=== PATIENT | female | born 1960 | race Caucasian/White ===

== ENCOUNTER 2017-07-15 12:06 | Emergency (ER) | payer OTHER ==
[2017-07-15 12:13] VITALS: BMI 34.9
[2017-07-15 12:14] VITALS: O2SAT 100
[2017-07-15] MEDS ORDERED: Sodium Chloride 0.9% 1,000 ML IV STA (13:08)
[2017-07-15 13:39] LABS: BASO % 0.7 % (0.0-2.0); EOS % 0.1 % (0.0-4.0); HEMATOCRIT 38.5 % (34.0-47.0); LYMPH # 1.1 K/uL (1.0-4.3); LYMPH % 30.3 % (20.0-40.0); MEAN CELL VOLUME 83.1 fL (81.0-99.0); MEAN CORPUSCULAR HEMOGLOBIN 27.5 pg (27.0-31.0); MEAN CORPUSCULAR HGB CONC 33.1 g/dL (33.0-37.0); MEAN PLATELET VOLUME 8.8 fL (7.2-11.7); MONO # 0.2 K/uL (0.0-0.8); NRBC % 0.2 % (0.0-2.0); RED CELL DISTRIBUTION WIDTH 14.6 % (11.5-14.5); WHITE BLOOD COUNT 3.8 K/uL (4.8-10.8)
[2017-07-15 13:45] LABS: RBC URINE < 1 /hpf (0-3); URINE BACTERIA RARE (<OCC); URINE BILIRUBIN NEGATIVE (NEGATIVE); URINE BLOOD NEGATIVE (NEGATIVE); URINE COLOR Colorless (YELLOW); URINE GLUCOSE (UA) NORMAL (Normal); URINE KETONE NEGATIVE (NEGATIVE); URINE LEUKOCYTE ESTERASE 1+ Leu/uL (Negative); URINE PROTEIN NEGATIVE (NEGATIVE); URINE UROBILINOGEN NORMAL mg/dL (0.2-1.0); WBC URINE 2 /hpf (0-5)
[2017-07-15 13:47] LABS: CHLORIDE 101 mmol/L (98-107); SODIUM 137 mmol/L (132-148)
[2017-07-15 13:48] LABS: POTASSIUM 3.9 mmol/L (3.6-5.2)
[2017-07-15 13:49] LABS: INR 1.1
[2017-07-15 13:50] LABS: ALKALINE PHOSPHATASE 78 U/L (38-126); AST/SGOT 26 U/L (14-36); BILIRUBIN,TOTAL 0.6 mg/dL (0.2-1.3); BLOOD UREA NITROGEN 15 mg/dL (7-17); CARBON DIOXIDE 27 mmol/L (22-30); GFR AFRICAN-AMERICAN > 60; GLUCOSE,RANDOM 88 mg/dL (65-105); TOTAL PROTEIN 8.4 g/dL (6.3-8.3)
[2017-07-15 13:51] LABS: ALT/SGPT 46 U/L (9-52); CALCIUM 9.7 mg/dl (8.6-10.4)
--- NOTE | 2017-07-15 14:19 | CT ---
PROCEDURE: CT HEAD WITHOUT CONTRAST. HISTORY: dizziness COMPARISON: None available. TECHNIQUE: Axial computed tomography images were obtained through the head/brain without intravenous contrast. Radiation dose: Total exam DLP = 878.42 mGy-cm. This CT exam was performed using one or more of the following dose reduction techniques: Automated exposure control, adjustment of the mA and/or kV according to patient size, and/or use of iterative reconstruction technique. FINDINGS: HEMORRHAGE: No intracranial hemorrhage. BRAIN: No mass effect or edema. No atrophy or chronic microvascular ischemic changes. VENTRICLES: Unremarkable. No hydrocephalus. CALVARIUM: Unremarkable. PARANASAL SINUSES: Unremarkable as visualized. No significant inflammatory changes. MASTOID AIR CELLS: Unremarkable as visualized. No inflammatory changes. OTHER FINDINGS: None. IMPRESSION: No evidence of acute intracranial hemorrhage intracranial collection mass effect or midline shift.
[2017-07-15 16:06] VITALS: BP 124/66; PULSE 55; RESP 12; TEMP 97.8
--- NOTE | 2017-07-15 16:20 | C.PDOC ---
History Of Present Illness <Zunilda Pulido - Last Filed: 07/16/17 08:41> <Petty Vazquez - Last Filed: 07/18/17 13:24> 56-year-old female, presents to the emergency department with complaints of dizziness for the past two days, that is described as a spinning sensation. patient notes mild associated nausea. Denies chest pain, abdominal pain, vomiting, or any other associated symptoms. No other complaints at this time. ( Zunilda Pulido) History Per: Patient History/Exam Limitations: no limitations <AshokZunilda - Last Filed: 07/16/17 08:41> <Petty Vazquez - Last Filed: 07/18/17 13:24> Time Seen by Provider: 07/15/17 12:33 Chief Complaint (Nursing): Dizziness/Lightheaded Past Medical History Reviewed: Historical Data, Nursing Documentation, Vital Signs - Medical History PMH: Anemia, Hypothyroidism Family History: States: No Known Family Hx - Social History Hx Tobacco Use: No Hx Alcohol Use: No Hx Substance Use: No - Immunization History Hx Tetanus Toxoid Vaccination: No Hx Influenza Vaccination: No Hx Pneumococcal Vaccination: No <AshokYolandaZunilda - Last Filed: 07/16/17 08:41> Vital Signs: Last Vital Signs Temp 97.8 F 07/15/17 16:04 Pulse 55 L 07/15/17 16:04 Resp 12 07/15/17 16:04 BP 124/66 07/15/17 16:04 Pulse Ox 100 07/16/17 08:42 - [facility] Procedures PACKED CELL TRANSFUSION (05/16/13) Review Of Systems Except As Marked, All Systems Reviewed And Found Negative. Constitutional: Negative for: Fever, Chills Respiratory: Negative for: Shortness of Breath Gastrointestinal: Positive for: Nausea. Negative for: Vomiting, Abdominal Pain Musculoskeletal: Negative for: Neck Pain, Back Pain Neurological: Positive for: Dizziness. Negative for: Weakness, Numbness, Headache <Zunilda Pulido - Last Filed: 07/16/17 08:41> Physical Exam - Physical Exam Appears: Well, Non-toxic, No Acute Distress Skin: Normal Color, Warm, Dry, No Rash Head: Atraumatic, Normacephalic Eye(s): bilateral: Normal Inspection, PERRL, EOMI, Other (no nystagmus) Nose: Normal Oral Mucosa: Moist Lips: Normal Appearing Neck: Normal ROM Cardiovascular: Rhythm Regular Respiratory: Normal Breath Sounds, No Accessory Muscle Use Gastrointestinal/Abdominal: Soft, No Tenderness Extremity: Normal ROM Neurological/Psych: Oriented x3, Normal Speech, Other (No focal deficit.) <Zunilda Pulido - Last Filed: 07/16/17 08:41> ED Course And Treatment - Laboratory Results Result Diagrams: 07/15/17 13:36 07/15/17 13:36 O2 Sat by Pulse Oximetry: 100 - CT Scan/US Head CT Other Rad Studies (CT/US): Read By Radiologist, Radiology Report Reviewed CT/US Interpretation: Accession No. : [id number]. Patient Name / ID : LINK LINARES / [id number]. Exam Date : 07/15/2017 13:58:55 ( Approved ). Study Comment : Sex / Age : F / 56Y. Creator : Delbert Gray MD. Dictator : Delbert Gray MD. Piece Dyeing Machine Tender : Transfer Engineer : Delbert Gray MD. Approver2 : Report Date : 07/15/2017 14:18:03. My Comment : . PROCEDURE: CT HEAD WITHOUT CONTRAST. HISTORY: dizziness. COMPARISON: None available. TECHNIQUE: Axial computed tomography images were obtained through the head/brain without intravenous contrast. Radiation dose: Total exam DLP = 878.42 mGy-cm. This CT exam was performed using one or more of the following dose reduction techniques: Automated exposure control, adjustment of the mA and/or kV according to patient size, and/or use of iterative reconstruction technique. FINDINGS: HEMORRHAGE: No intracranial hemorrhage. BRAIN: No mass effect or edema. No atrophy or chronic microvascular ischemic changes. VENTRICLES: Unremarkable. No hydrocephalus. CALVARIUM: Unremarkable. PARANASAL SINUSES: Unremarkable as visualized. No significant inflammatory changes. MASTOID AIR CELLS: Unremarkable as visualized. No inflammatory changes. OTHER FINDINGS: None. IMPRESSION: No evidence of acute intracranial hemorrhage intracranial collection mass effect or midline shift. Progress Note: Patieant was treated with Meclizine and IVF. On re-evalauation whe feels better, no longer c/o dizziness and is stable to be d/c home with PMD follow up. <Zunilda Pulido - Last Filed: 07/16/17 08:41> - Laboratory Results Result Diagrams: 07/15/17 13:36 07/15/17 13:36 <Petty Vazquez - Last Filed: 07/18/17 13:24> Disposition - Disposition Disposition Time: 16:47 <Zunilda Pulido - Last Filed: 07/16/17 08:41> <Petty Vazquez - Last Filed: 07/18/17 13:24> - Disposition Referrals: Reuben Hudson MD [Staff Provider] - Disposition: HOME/ ROUTINE Condition: IMPROVED Additional Instructions: Follow up with PMD and Neurologist within 1-2 days. Return to ED if feel worse. Prescriptions: Meclizine [Meclizine*] 25 mg PO Q6 #30 tab Instructions: Vertigo (ED) Forms: [facility] ([place]) - Clinical Impression Clinical Impression: Vertigo - Scribe Statement The provider has reviewed the documentation as recorded by the Scribe (Sangita Engel) <Zunilda Pulido - Last Filed: 07/16/17 08:41> <Petty Vazquez - Last Filed: 07/18/17 13:24> - Scribe Statement All medical record entries made by the Scribe were at my direction and personally dictated by me. I have reviewed the chart and agree that the record accurately reflects my personal performance of the history, physical exam, medical decision making, and the department course for this patient. I have also personally directed, reviewed, and agree with the discharge instructions and disposition. (Zunilda Pulido)
--- NOTE | 2017-07-16 21:40 | CARD ---
APPROVED REPORT EKG Measurement Heart [id number] <Conclusion> Normal sinus rhythm Minimal voltage criteria for LVH, may be normal variant Borderline ECG
== END 2017-07-15 17:02 | disposition home or self-care (01) ==
LOC: C.ER 12:06
DX: R42 Dizziness and giddiness (principal)
CPT/HCPCS: 70450; 80053; 81001; 82550; 82553; 84484; 85025; 85610; 85730; 93005; 96360; 99285; J7040